=== PATIENT | male | born 1975 | race Caucasian/White ===

== ENCOUNTER 2018-05-12 08:25 | Day surgery (SDC) | payer BC ==
[2018-05-11 17:00] LABS: Absolute Lymphocytes (CBC) 1.7 K/uL (0.7-4.9); Absolute Monocytes 0.5 K/uL (0.1-1.3); Absolute Neutrophil 4.4 K/uL (1.8-8.0); Basophils % 0.8 % (0-1.3); Hematocrit 44.6 % (39.6-49.0); Lymphocytes % 23.9 % (15.3-44.8); MPV 8.5 fL (7.6-11.3); Monocytes % 7.1 % (3.3-12.3); RBC Red Blood Cell Count 4.92 M/uL (4.33-5.43)
--- NOTE | 2018-05-11 17:02 | RAD REPORT ---
EXAM DESCRIPTION: RAD - Chest Pa And Lat (2 Views) - 05/11/2018 4:53 pm CLINICAL HISTORY: preop Chest pain. COMPARISON: No comparisons FINDINGS: The lungs are clear. The heart is normal in size. Small hiatal hernia suspected. No displa sudheer fractures. IMPRESSION: No acute or concerning finding suspected.
[2018-05-11 17:14] LABS: Albumin 3.9 g/dL (3.4-5.0); Bilirubin Direct 0.1 mg/dL (0-0.2); Bilirubin Total 0.4 mg/dL (0.2-1.0); Potassium 4.1 mmol/L (3.5-5.1); Protein, Total 7.3 g/dL (6.4-8.2)
--- NOTE | 2018-05-11 18:19 | EKG ---
Test Date: 2018-05-11 Test Time: 16:31:12 Service Observer: ISLVIA MEASUREMENT RESULTS: Intervals: Rate: 57 NH: 130 QRSD: 88 QT: 428 QTc: 416 [place]: P: 28 NH: 130 QRS: 24 T: 41 INTERPRETIVE STATEMENTS: Sinus bradycardia Otherwise normal ECG No previous ECG available for comparison Electronically Signed On 05-11-18 18:19:07 [employer] DIST[employer]BUT[employer] by Kofi Golden
--- OUTSIDE RECORDS SUMMARY | 2018-05-12 08:28 | XMS REPORT ---
:1975 Author Organization [employer] Care Team Providers Name Role Phone Hola Sharma Provider Role Unavailable Allergies No Known Allergies Problems Problem Type Condition Code Onset Dates Condition Status Assessment Prediabetes R73.03 Active Assessment Chewing tobacco nicotine F17.220 Active dependence, uncomplicated Assessment History of gastric restrictive Z98.84 Active surgery Assessment Seasonal allergic rhinitis, J30.2 Active unspecified trigger Problem Seasonal allergic rhinitis, J30.2 Active unspecified trigger Problem Chewing tobacco nicotine F17.220 Active dependence, uncomplicated Problem Prediabetes R73.03 Active Assessment Mild intermittent asthma without J45.20 Active complication Problem Mild intermittent asthma without J45.20 Active complication Problem History of gastric restrictive Z98.84 Active surgery Medications Medication Code Code Instructions Start End Status Dosage System Date Date Albuterol [facility] 99765624073 108 (90 Base) Active 2 puffs as Sulfate HFA MCG/ACT needed Inhalation every 6 hrs Singulair [facility] 18049980747 10 MG Orally Active 1 tablet Once a day in the evening Fluticasone [facility] [address]-24 44 MCG/ACT Active 2 puffs Propionate HFA Inhalation Twice a day Singulair [facility] 87022920489 10 MG Orally Active 1 tablet Once a day in the evening Results No Known Results Summary Purpose eClinicalWorks Submission
--- OUTSIDE RECORDS SUMMARY | 2018-05-12 08:28 | XMS REPORT ---
:1975 Author Organization [employer] Care Team Providers Name Role Phone Hola Sharma Provider Role Unavailable Allergies, Adverse Reactions, Alerts Substance Reaction Event Type N.K.D.A. Info Not Available Non Drug Allergy Problems Problem Type Condition Code Onset Dates Condition Status Assessment Need for Tdap vaccination Z23 Active Assessment Seasonal allergic rhinitis, J30.2 Active unspecified trigger Assessment History of gastric restrictive Z98.84 Active surgery Problem History of gastric restrictive Z98.84 Active surgery Problem Seasonal allergic rhinitis, J30.2 Active unspecified trigger Problem Mild intermittent asthma without J45.20 Active complication Assessment Mild intermittent asthma without J45.20 Active complication Assessment Chewing tobacco nicotine F17.220 Active dependence, uncomplicated Problem Chewing tobacco nicotine F17.220 Active dependence, uncomplicated Assessment Encounter for preventative adult Z00.01 Active health care exam with abnormal findings Medications Medication Code Code Instructions Start End Status Dosage System Date Date Singulair [facility] 34441750367 10 MG Orally Active 1 tablet Once a day in the evening Fluticasone [facility] [address]-20 44 MCG/ACT Active 2 puffs Propionate HFA Inhalation Twice a day Albuterol [facility] 75785998561 108 (90 Base) Active 2 puffs as Sulfate HFA MCG/ACT needed Inhalation every 6 hrs Results No Known Results Immunizations Vaccine Administration Date TDAP > 7 Years-Adacel August 24, 2017 Summary Purpose eClinicalWorks Submission
[2018-05-12] MEDS ORDERED: Ringers Lactate 1,000 ML IV ONE (08:43)
[2018-05-12] MEDS ORDERED: CEFOXITIN/SWI 1gm 1 GM/10 ML SYR ONE (09:20)
[2018-05-12] MEDS ORDERED: FENTANYL CITR 100 MCG/2 ML ONE (09:44)
[2018-05-12] MEDS ORDERED: PROPOFOL 200 MG/20 ML VIAL IV ONE (09:44)
[2018-05-12] MEDS ORDERED: MIDAZOLAM HCL 2 MG/2 ML INJ ONE (09:45)
[2018-05-12] MEDS ORDERED: LIDOCAINE 2% MPF 5 ML VIAL ONE (09:45)
[2018-05-12] MEDS ORDERED: ROCURONIUM 50 MG/5 ML VIAL IV ONE (09:46)
[2018-05-12] MEDS ORDERED: ONDANSETRON 4 MG/2 ML VIAL ONE ×2 (09:46→11:49)
[2018-05-12] MEDS ORDERED: BUPIVACAINE 0.5% PF 10 ML VIAL ONE (09:47)
[2018-05-12] MEDS ORDERED: GLYCOPYRROLATE 0.2 MG/ML SYR ONE (11:48)
[2018-05-12] MEDS ORDERED: KETOROLAC 30 MG/ML INJ ONE (11:48)
[2018-05-12] MEDS ORDERED: NEOSTIGMINE 1 MG/ML -5 ML SYRINGE ONE (11:49)
--- NOTE | 2018-05-12 12:01 | P.BOP ---
Preoperative diagnosis: acute cholecystitis, symptomatic cholelithiasis Postoperative diagnosis: same Primary procedure: Laparoscopic cholecystectomy Estimated blood loss: <10cc Specimen: gb Findings: as above Anesthesia: General Complications: None Transferred to: Recovery Room Condition: Good
[2018-05-12] MEDS ORDERED: HYDROMORPHONE HCL 2 MG/ML inj ONE (12:20)
[2018-05-12] MEDS ORDERED: CODEINE 30MG/APAP 300MG TAB ONE (13:25)
--- NOTE | 2018-05-17 21:11 | OP ---
Date of Procedure: 05/12/2018 Surgeon: Bora Blanc MD Preoperative Diagnoses: Acute cholecystitis, symptomatic cholelithiasis. Postoperative Diagnoses: Acute cholecystitis, symptomatic cholelithiasis. Procedure: Laparoscopic cholecystectomy. Specimen: Gallbladder. Anesthesia: General plus local. Indications: This is a case of a 42-year-old patient, comes to us with above diagnosis. Fully expla ined the benefits, alternatives, and risks of laparoscopic, possible open cholecystectomy, which incl ude, but not limited to infection, bleeding, damage to adjacent structures, anesthesia complication, choledocholithiasis, bile leak, pancreatitis, [place], and even . He also understands this may not r elieve any symptoms. He might need more than one surgical intervention. He understood, signed a con sent. Description Of Procedure: The patient was brought to the operating room, placed in supine position. Anesthesia was done without complication. Abdominal area was prepped and draped in a sterile fashio n. Marcaine 0.5% injected for local anesthetic, followed by sharp incision of the skin in the perium bilical region. Incision was carried down to fascia, which was opened under direct vision. Peritone um was encountered, opened under direct vision. Vicryl #1 placed inside the fascia. Leila trocar w as carefully introduced and no bleeding was obtained. After that, I proceed to place 2 more trocars, 5 mm each one of them, 1 in the epigastric region, 2 in the right upper quadrant using same techniqu e, which consisted of local anesthetic, sharp incision of the skin, and introduction of the trocars u nder direct vision. This allowed me to put a grasper in the fundus of the gallbladder, another grasp er in the infundibulum, retract the gallbladder in the inferolateral fashion exposing the triangle of Calot, obtaining critical view of safety. Cystic duct and cystic artery were clearly isolated free circumferentially and a connection between those and the gallbladder were clearly identified. I proc eeded to ligate those by using at least 3 clips proximal, 1 clip distal, ligation in middle. Same wa s done with the cystic artery. No bile leak. No bleeding. The gallbladder was removed from abdomin al cavity using an EndoCatch through the umbilical incision. The area was inspected once again. No bile leak. No bleeding. At that moment, I proceeded to remove the trocars under direct vision. Def lated the pneumoperitoneum. Closed the fascia with #1 Vicryl. Irrigated subcu tissue, closed that w ith 3-0 chromic and skin was approximated. Sponge count and instrument counts were correct. The pat ient tolerated the procedure well. The patient was sent to recovery in stable condition. ROSA/ROBERTA Voice ID: [id number] Report ID: [id number]
== END 2018-05-12 13:51 | disposition home or self-care (01) ==
LOC: OR 08:25
PROVIDERS: ATTEND Surgery
PROC: 0FT44ZZ Resection of Gallbladder, Percutaneous Endoscopic Approach (ICD-10-PCS; principal; 2018-05-12 09:30)
DX: K80.00 Calculus of gallbladder with acute cholecystitis without obstruction (principal); J45.909 Unspecified asthma, uncomplicated; Z72.0 Tobacco use; Z98.84 Bariatric surgery status; Z82.49 Family history of ischemic heart disease and other diseases of the circulatory system
CPT/HCPCS: 36415; 71046; 80048; 80076; 82150; 83690; 85025; 88304; 93005; J1170; J2250; J2405; J2704; J2710; J3010